=== PATIENT | female | born 2000 | race Two or more races ===

== ENCOUNTER 2021-07-02 21:05 | Emergency (ER) | payer OTHER ==
[~2021-07-02] VITALS: Ht 162.6 cm; Wt 72.6 kg
[~2021-07-02 21:05] MED LIST: KETO10TA2 PO; NABUMETONE500 MG PO; TYLENOL-CODEINE1 TAB PO
== END 2021-07-03 00:33 | disposition home or self-care (01) ==
LOC: ER 21:05
DX: N39.0 Urinary tract infection, site not specified (principal)

== ENCOUNTER 2022-10-23 11:57 | Inpatient (IN) | payer OTHER ==
[~2022-10-23] VITALS: Ht 162.6 cm; Wt 59.0 kg
== END 2022-10-26 19:03 | disposition home or self-care (01) | DRG 690 ==
LOC: ER 11:57 → MEDI 22:51
PROVIDERS: ADMIT Specialist; ATTEND Specialist
PROC: BW21YZZ Computerized Tomography (CT Scan) of Abdomen and Pelvis using Other Contrast (ICD-10-PCS; principal; 2022-10-23)
DX: N39.0 Urinary tract infection, site not specified (principal); B96.20 Unspecified Escherichia coli [E. coli] as the cause of diseases classified elsewhere; E86.0 Dehydration; N12 Tubulo-interstitial nephritis, not specified as acute or chronic